=== PATIENT | male | born 1945 | race Caucasian/White ===

== ENCOUNTER 2020-02-27 12:08 | Day surgery (SDC) | payer MEDICARE ==
[~2020-02-27 12:08] MED LIST: Lactated Ringers 1,000 ML IV ONE; Sensorcaine 0.25% 10 ML ONE
[2020-02-27] MEDS ORDERED: CEFAZOLIN 2 GM-D5W BAG** 2 GM/50 ML ML IV ONE (12:12)
[2020-02-27] MEDS ORDERED: Lactated Ringers 1,000 ML IV ONE ×2 (12:12→15:54)
[2020-02-27] MEDS ORDERED: CEFAZOLIN 2 GM-D5W BAG** 2 GM/50 ML ML IV SCH (12:30)
[2020-02-27] MEDS ORDERED: Lactated Ringers 1,000 ML IV SCH (12:30)
[2020-02-27] MEDS ORDERED: Decadron 4 MG INJ ONE ×2 (13:40→15:02)
[2020-02-27] MEDS ORDERED: SUBLIMAZE 100 MCG/2 ML ONE ×2 (13:40→15:51)
[2020-02-27] MEDS ORDERED: Xylocaine-Mpf 2% 5 Ml Vial ONE (13:40)
[2020-02-27] MEDS ORDERED: TORAdol 30 mg Injection ONE (13:40)
[2020-02-27] MEDS ORDERED: Zofran 4 MG/2 ML VIAL ONE (13:40)
[2020-02-27] MEDS ORDERED: DIPRIVAN 200 MG/20 ML IV ONE (13:40)
[2020-02-27] MEDS ORDERED: Ephedrine Sulfate 50 MG/ML ONE (14:12)
[2020-02-27] MEDS ORDERED: Naropin 0.5% 30 ML VIAL ONE (15:02)
[2020-02-27] MEDS ORDERED: MORPHINE SULFATE 10 MG/ML ONE (15:40)
[2020-02-27 17:12] VITALS: O2SAT 99
[2020-02-27 17:48] VITALS: BP 174/96; PULSE 83
--- NOTE | 2020-02-28 08:03 | OP ---
SURGERY DATE/TIME: 02/27/2020 1400 PREOPERATIVE DIAGNOSIS: Left inguinal hernia. POSTOPERATIVE DIAGNOSIS: Left indirect inguinal hernia. PROCEDURE: Left inguinal hernia repair with mesh, Vance. SURGEON: Saurabh Ho M.D. ANESTHESIA: General. ESTIMATED BLOOD LOSS: 25. PATIENT CONDITION: Stable. COMPLICATIONS: None. SPECIMENS: None. INDICATIONS: The patient presented to the office with a symptomatic left inguinal hernia. Risk of infection, bleeding, injury to spermatic cord, recurrence, chronic pain, mesh infection, mesh complications, nerve pain discussed. Options of laparoscopic versus open discussed. He wanted an open repair. FINDINGS: Indirect inguinal hernia and cord lipoma, Vance repair. DESCRIPTION OF PROCEDURE: The patient was brought to the OR. General anesthesia was induced. He was placed supine with arms up. SCD's were applied and on. He was routinely prepped and draped. Time out was performed. He received preoperative antibiotic. Left groin incision made and carried down through Jim, external oblique. The spermatic cord was circumferentially freed up. The floor of the canal was intact. There was indirect inguinal hernia a couple of centimeters. The sac was totally immobilized. There was also small cord lipoma. The cord lipoma was excised. The sac was dunked. Bard free shaped mesh 5 x 10 cm was then placed. It was sutured in place with Prolene sutures. The mesh was flat, satisfactory good overlay. The internal ring refashioned with keyhole mesh. The external oblique was closed over with Vicryl suture. Deep dermal 3-0 Vicryl were placed. Skin closed with 4-0 Vicryl suture. Steri-Strips and sterile dressings applied. Marcaine was injected into the incision. All counts were correct. The patient tolerated the procedure well with plans for tap block and sedation.
== END 2020-02-27 17:40 | disposition home or self-care (01) ==
LOC: SDC 12:08
PROVIDERS: ATTEND Surgery
DX: K40.90 Unilateral inguinal hernia, without obstruction or gangrene, not specified as recurrent (principal); Z79.899 Other long term (current) drug therapy
CPT/HCPCS: 49505; 64486; 76937; 76942; 93005; C1781; 99100; J0690; J1100; J1885; J2270; J2405; J2704; J2795; J3010